=== PATIENT | male | born 1975 | race Caucasian/White ===

== ENCOUNTER 2018-03-27 20:31 | Emergency (ER) | payer OTHER ==
[2018-03-27] MEDS ORDERED: PROPARACAINE 0.5% OPHTH DROPS 15 ML BTL BOTH EYES STA (20:41)
[2018-03-27 20:42] VITALS: BP 164/89; PULSE 78; RESP 18; TEMP 98.1
[2018-03-27] MEDS ORDERED: ERYTHROMYCIN 5 MG/GM OPHTH OINT 3.5 GM TUBE LEFT EYE STA (21:10)
--- NOTE | 2018-03-27 21:21 | ED ---
Eye Problem HPI - General Chief complaint: Eye Problems Stated complaint: Vision issues Time Seen by Provider: 03/27/18 20:41 Source: patient, RN notes reviewed, old records reviewed Mode of arrival: ambulatory Limitations: no limitations - History of Present Illness Initial comments: This patient is a 42 year old male with CC of accidentally getting alcohol into his R eye yesterday, since then complains of vision blurriness and pain. Patient reports he sees no floaters. Patient denies changes in periphearl vision. Denies headache or other symptoms. Does not wear contacts or glasses. - Related Data Previous Rx's Medication Instructions Recorded Erythromycin Base [Erythromycin] 1 applic LEFT EYE Q4H #1 tube 03/27/18 Allergies Allergy/AdvReac Type Severity Reaction Status Date / Time No Known Allergies Allergy Verified 03/27/18 20:39 Review of Systems ROS Statement: Those systems with pertinent positive or pertinent negative responses have been documented in the HPI. ROS Other: All systems not noted in ROS Statement are negative. Past Medical History Past Medical History: No Reported History Additional Past Medical History / Comment(s): heart murmur History of Any Multi-Drug Resistant Organisms: None Reported Past Surgical History: Orthopedic Surgery Past Psychological History: No Psychological Hx Reported Smoking Status: Former smoker Past Alcohol Use History: None Reported Past Drug Use History: None Reported General Exam - General Exam Comments Initial Comments: Well appearing 42 year old male, no distress. Limitations: no limitations General appearance: alert, in no apparent distress Head exam: Present: atraumatic, normocephalic, normal inspection Eye exam: Present: normal appearance, PERRL, EOMI, conjunctival injection (R eye conjunctival injection). Absent: scleral icterus, periorbital swelling Neck exam: Present: normal inspection. Absent: tenderness, meningismus, lymphadenopathy Respiratory exam: Present: normal lung sounds bilaterally. Absent: respiratory distress, wheezes, rales, rhonchi, stridor Cardiovascular Exam: Present: regular rate, normal rhythm, normal heart sounds. Absent: systolic murmur, diastolic murmur, rubs, gallop, clicks Back exam: Present: normal inspection Neurological exam: Present: alert, oriented X3, CN II-XII intact Psychiatric exam: Present: normal affect, normal mood Skin exam: Present: warm, dry, intact, normal color. Absent: rash Course Vital Signs 03/27/18 20:40 Temperature 98.1 F Pulse Rate 78 Respiratory 18 Rate Blood Pressure 164/89 O2 Sat by Pulse 98 Oximetry Medical Decision Making - Medical Decision Making 42 year old male presents with R eye pain and blurriness after accidental alcohol exposure to eye. He reports it occured yesterday. Patient has evidence of small corneal abrasion over R eye at 6 oclock position. Discussed could be from rubbing eye after alcohol contact. Discussed opthalmology follow up. REturn parameters discussed. Disposition Clinical Impression: Corneal abrasion Disposition: HOME SELF-CARE Condition: Good Instructions: Eye Lubricant (Into the eye) Additional Instructions: Apply the eye ointment every 4 hours. Patient should follow-up with optometry and ophthalmology on Thursday. Return to the emergency department if any alarming signs or symptoms occur. Prescriptions: Erythromycin Base [Erythromycin] 1 applic LEFT EYE Q4H #1 tube Is patient prescribed a controlled substance at d/c from ED?: No Referrals: None,Stated [Primary Care Provider] - 1-2 days Bertrand Garrett MD [STAFF PHYSICIAN] - 1-2 days Time of Disposition: 21:20
== END 2018-03-27 21:32 | disposition home or self-care (01) ==
LOC: EC 20:31
DX: S05.01XA Injury of conjunctiva and corneal abrasion without foreign body, right eye, initial encounter (principal); Z87.891 Personal history of nicotine dependence; X58.XXXA Exposure to other specified factors, initial encounter
CPT/HCPCS: 99284